=== PATIENT | female | born 1985 | race Caucasian/White ===

== ENCOUNTER 2023-11-01 12:41 | Emergency (ER) | payer BC ==
--- NOTE | 2023-11-01 13:18 | ER ---
Nurse's Notes [facility] Name: Ann Lopez Age: 38 yrs Sex: Female : 1985 Arrival Date: 11/01/2023 Time: 12:41 Bed IW2 Private MD: Diagnosis: Crushing injury of head, part unspecified;Contusion of unspecified part of head Presentation: 10/31 13:11 Chief complaint: Patient states: Tripped and fell on Sunday, hit head on refrigerator, ph no LOC, c/o dizziness, L sided headache, and nausea. Coronavirus screen: Vaccine status: Patient reports being unvaccinated. Ebola Screen: No symptoms or risks identified at this time. Mechanism of Injury: The problem was sustained at home, resulted from a fall, from a standing position. Initial Sepsis Screen: Does the patient meet any 2 criteria? No. Patient's initial sepsis screen is negative. Does the patient have a suspected source of infection? No. Patient's initial sepsis screen is negative. Risk Assessment: Do you want to hurt yourself or someone else? Patient reports no desire to harm self or others. Onset of symptoms was November 01, 2023. 13:11 Method Of Arrival: Ambulatory ph 13:11 Acuity: DINORAH 4 ph Triage Assessment: 13:14 General: Appears in no apparent distress. Behavior is calm, cooperative. Pain: ph Complains of pain in left frontal area, left side of the back of head and left temporal area. Neuro: Level of Consciousness is awake, alert, obeys commands, Oriented to person, place, time, situation, Reports dizziness, headache. GI: Reports nausea, Patient currently denies vomiting. Historical: - Allergies: 13:13 PENICILLINS; ph - PMHx: 13:13 ADD; ph - PSHx: 13:13 tubal ligation; section; ph - Immunization history:: Adult Immunizations unknown. - Infectious Disease History:: Denies. - Social history:: Smoking status: Reported history of juuling and/or vaping. Screenin:15 [facility] ED Fall Risk Assessment (Adult) History of falling in the last 3 months, ph including since admission No falls in past 3 months (0 pts) Confusion or Disorientation No (0 pts) Intoxicated or Sedated No (0 pts) Impaired Gait No (0 pts) Mobility Assist Device Used No (0 pt) Altered Elimination No (0 pt) Score/Fall Risk Level 0 - 2 = Low Risk Oriented to surroundings, Maintained a safe environment. Abuse screen: Denies threats or abuse. Denies injuries from another. Nutritional screening: No deficits noted. Tuberculosis screening: No symptoms or risk factors identified. Vital Signs: 13:11 BP 115 / 104; Pulse 96; Resp 18; Temp 98.4; Pulse Ox 98% on R/A; Weight 77.11 kg; ph Height 5 ft. 3 in. ; 13:11 Body Mass Index 30.11 (77.11 kg, 160.02 cm) ph [place] Coma Score: 13:11 Eye Response: spontaneous(4). Motor Response: obeys commands(6). Verbal Response: ph oriented(5). Total: 15. ED Course: 12:45 Patient arrived in ED. mr 12:56 Timur Swain DO is Attending Physician. ms3 13:13 Triage completed. ph 13:14 Arm band placed on Patient placed in waiting room, Patient notified of wait time. ph 13:17 Dipak Hernandez DO is Referral Physician. ms3 13:30 No provider procedures requiring assistance completed. Patient did not have IV access ph during this emergency room visit. 13:32 Farnaz Rios, RN is Primary Nurse. ph Administered Medications: No medications were administered Medication: 15:43 VIS not applicable for this client. ph Outcome: 13:17 Discharge ordered by . ms3 13:32 Patient left the ED. ph 13:32 Discharged to home ambulatory, ph 13:32 Condition: good 13:32 Discharge instructions given to patient, Instructed on discharge instructions, follow up and referral plans. Demonstrated understanding of instructions, follow-up care, Signatures: Rachel Shah, Reg Reg mr Farnaz Rios RN RN ph Timur Swain DO DO ms3
--- NOTE | 2023-11-01 13:18 | EDPHYS ---
Physician Documentation [facility] Name: Ann Lopez Age: 38 yrs Sex: Female : 1985 Arrival Date: 11/01/2023 Time: 12:41 Bed IW2 Private MD: ED Physician Timur Swain HPI: 10/31 13:18 This 38 yrs old Female presents to ER via Ambulatory with complaints of Head ms3 Injury-Adult. 13:18 38-year-old female with past medical history of ADD presents to the emergency ms3 department status post tripping over her dog and hitting her head on the refrigerator on Sunday. Patient states she is having dizziness and left head pulsating that began today while standing. 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 Her discomfort is a 4/10 and Tylenol improves her discomfort. She denies loss of consciousness. Historical: - Allergies: 13:13 PENICILLINS; ph - PMHx: 13:13 ADD; ph - PSHx: 13:13 tubal ligation; section; ph - Immunization history:: Adult Immunizations unknown. - Infectious Disease History:: Denies. - Social history:: Smoking status: Reported history of juuling and/or vaping. ROS: 13:18 Constitutional: Negative for fever, and chills. Cardiovascular: Negative for chest ms3 pain, and palpitations. Respiratory: Negative for shortness of breath, cough, wheezing, and pleuritic chest pain, Abdomen/GI: Negative for abdominal pain, nausea, vomiting, diarrhea, and constipation, MS/Extremity: Negative for injury and deformity, Exam: 13:18 Constitutional: This is a well developed, well nourished patient who is awake, alert, ms3 and in no acute distress. Head/Face: Normocephalic, atraumatic. 13:18 Cardiovascular: Regular rate and rhythm with a normal S1 and S2. No gallops, murmurs, or rubs. Normal PMI, no JVD. No pulse deficits. Respiratory: Lungs have equal breath sounds bilaterally, clear to auscultation and percussion. No rales, rhonchi or wheezes noted. No increased work of breathing, no retractions or nasal flaring. Abdomen/GI: Soft, non-tender, with normal bowel sounds. No distension or tympany. No guarding or rebound. No evidence of tenderness throughout. Neuro: Awake and alert, GCS 15, oriented to person, place, time, and situation. Cranial nerves II-XII grossly intact. Motor strength 5/5 in all extremities. Sensory grossly intact. Cerebellar exam normal. Normal gait. 13:18 Skin: Ecchymosis right thigh. Vital Signs: 13:11 BP 115 / 104; Pulse 96; Resp 18; Temp 98.4; Pulse Ox 98% on R/A; Weight 77.11 kg; ph Height 5 ft. 3 in. ; 13:11 Body Mass Index 30.11 (77.11 kg, 160.02 cm) ph [place] Coma Score: 13:11 Eye Response: spontaneous(4). Motor Response: obeys commands(6). Verbal Response: ph oriented(5). Total: 15. MDM: 13:15 Patient medically screened. ms3 13:18 Differential diagnosis: Contusion of Hematoma on Concussion without LOC. Data reviewed: ms3 vital signs, nurses notes, and as a result, I will discharge patient. Test considered but Not performed:. Test considered but Not performed: CT: CT head not performed. See [place] head CT rules. Scoring Tools [place] CT Head GCS<15 at 2 hrs after injury No Suspected open or depressed skull fracture No History of worsening headache No Irritability on exam No Any sign of basal skull fracture (Hemotympanum, raccoon eyes, CSF, otorrhea or rhinorrhea, Bob's sign) No Large boggy scalp hematoma No Dangerous mechanism of injury (MVC, fall from 3 ft+/> or stairs, fall from bicycle with no helmet No. ED course: Discussed physical exam findings with patient. Patient to follow-up with primary care physician in 2 to 3 days for reevaluation. All questions were answered. Return precautions discussed include worsening symptoms, or any other concerns. Administered Medications: No medications were administered Disposition Summary: 11/01/23 13:17 Discharge Ordered Notes: Location: Home ms3 Condition: Stable ms3 Diagnosis - Crushing injury of head, part unspecified ms3 - Contusion of unspecified part of head ms3 Followup: ms3 - With: Dipak Hernandez, DO - When: 2 - 3 days - Reason: Recheck today's complaints Discharge Instructions: - Discharge Summary Sheet ph - Concussion, Adult ms3 Forms: - Work release form ph - Medication Reconciliation Form ms3 - Antibiotic Education ms3 - Prescription Opioid Use ms3 - Patient Portal Instructions ms3 - Leadership Thank You Letter ms3 Signatures: Farnaz Rios RN RN ph Timur Swain DO DO ms3
[2023-11-01 13:47] VITALS: BP 115/104; TEMP 98.4; O2SAT 98
== END 2023-11-01 13:32 | disposition home or self-care (01) ==
LOC: ER 12:41
DX: S00.83XA Contusion of other part of head, initial encounter (principal); Z88.0 Allergy status to penicillin
CPT/HCPCS: 99282